=== PATIENT | male | born 1970 | race Caucasian/White ===

== ENCOUNTER 2016-12-06 16:00 | Emergency (ER) | payer SELFPAY ==
[2016-12-06 16:04] VITALS: BP 123/84; BMI 28.0
--- NOTE | 2016-12-06 16:12 | DR.GENAD ---
HPI - PCP Primary Care Physician: BRANDI - Complaint/Symptoms Chief Complaint:: PT. C/O LEFT EYE PAIN, SWELLING, & REDNESS AND ALSO DIZZY SPELLS FOR THE PAST FEW DAYS. - Nurses notes reviewed Nurses Notes Review: Yes - Source History Provided: Patient - Mode of Arrival Mode of Arrival: Ambulatory - Timing Onset of Chief Complaint: 12/03/16 Came on: Gradually - Duration Duration: Constant How lon Duration: Days - Location Location: left eye - Severity Severity: Moderate - Modifying Factors Worsens:: light - Associated Signs and Symptoms Associated Signs and Symptoms: pain PMH - PMH Past Medical History: Yes Past Medical History: Diabetes, Hypertension Past Surgical History: Yes Surgical History: Ortho Surgery - Family History History of Family Medical Conditions: No - Social History Does patient currently use any type of tobacco product: Yes Have you used tobacco products in the last 12 months: Yes Type of Tobacco Use: Cigarettes How many years tobacco product used: 32 Does any household member use tobacco: Yes Alcohol Use: None Do you use any recreational Drugs:: No Lives With: Spouse Lives Where: Home - infectious screening In the last 2 months have you had wt loss of >10#?: NO Have you had fever, night sweats or hemotysis?: No Have you traveled outside the country in the last 6 months?: No Isolation: Standard ROS - Review of Systems Constitutional: No Symptoms Reported Eyes: Eye Pain (left), Photophobia ENTM: No Symptoms Reported Respiratoy: No Symptoms Reported Cardiovascular: No Symptoms Reported Gastrointestinal/Abdominal: No Symptoms Reported Genitourinary: No Symptoms Reported Neurological: Dizziness Musculoskeletal: No Symptoms Reported Integumentary: No Symptoms Reported Hematologic/Lymphatic: No Symptoms Reported Endocrine: No Symptoms Reported Psychiatric: No Symptoms Reported All Other Systems: Reviewed and Negative PE - Vital Signs Vitals: Temperature 98.3 F Pulse Rate 106 Respiratory Rate 16 Blood Pressure 123/84 O2 Sat by Pulse Oximetry 100 - General Limitations: No Limitations General Appearance: Alert, In No Apparent Distress - Head Head Exam: Normal Inspection - Eyes Eye exam: Normal Appearance, EOMI, Conjunctival Injection, Other (no vision problems). negative: Scleral Icterus, Nystagmus, Periorbital Swelling, Periorbital Tenderness - ENT ENT Exam: Normal Exam, Normal Oropharynx External Ear Exam: Normal External Inspection Nose Exam: Normal Nose Exam Mouth Exam: Normal Inspection - Neck Neck Exam: Normal Inspection, Full ROM, Trachea Midline - Respiratory Respiratory Exam: negative: Accessory Muscle Use, Respiratory Distress - Extremities Extremities Exam: Normal Inspection, Full ROM - Back Back Exam: Normal Inspection - Neurologic Neurological Exam: Alert, Oriented X3, CN II-XII Intact - Psychiatric Psychiatric Exam: Normal Mood - Skin Skin Exam: Intact, Normal Color ROR - Labs Reviewed Laboratory: UDS: negative - XRAY XRAY Interpreted by: Radiologist XRAY Findings: CT Head: normal - Diagnosis Discharge Problem: Conjunctivitis of left eye Qualifiers: Conjunctivitis type: acute Acute conjunctivitis type: unspecified Qualified Code(s): H10.32 - Unspecified acute conjunctivitis, left eye - Discharge Plan Condition: Stable Prescriptions: Ketorolac Trometh (Ophth) [Acular 0.5% Ophth Soln] 1 drop AFFEYE TID #5 ml Jymohnhr-[id number]-[id number] (Ophth) [Cortisporin Ophth Susp] 1 drop AFFEYE Q4H #1 ea - Follow ups/Referrals Follow ups/Referrals: [facility],None [Primary Care Provider] - 3 days - Instructions
--- NOTE | 2016-12-06 17:00 | CT ---
STUDY: CT HEAD WITHOUT CONTRAST HISTORY: Left eye pain and dizziness. TECHNIQUE: Multiple axial images of the head were obtained from the skull base to the vertex withou t administration of IV contrast. Automated exposure control (AEC) was utilized to adjust the MA and /or kV. COMPARISON: None. FINDINGS: The sulci, cisterns and ventricles are age appropriate. There is no evidence of acute ter ritorial infarction, hemorrhage, mass, mass effect, or midline shift. There are no abnormal intra-ax ial or extra-axial fluid collections. Both orbits are normal in appearance. There is no evidence of acute osseous abnormality or significant soft tissue swelling. Visualized pa ranasal sinuses and mastoid air cells are predominately clear. IMPRESSION: 1. No evidence of acute intracranial abnormality. Reported By:
== END 2016-12-06 18:07 | disposition home or self-care (01) ==
LOC: ER 16:07
DX: H10.32 Unspecified acute conjunctivitis, left eye (principal); R42 Dizziness and giddiness
CPT/HCPCS: 70450; 80307; 99282; G0434